=== PATIENT | female | born 1975 | race Caucasian/White ===

== ENCOUNTER → 2019-10-03 10:55 | Outpatient (CLI) | payer OTHER, MEDICARE, SELFPAY ==
--- NOTE | ~2019-10-03 | MM_ITS ---
EXAMINATION: MM screening [facility] BI w tom HISTORY: Screening TECHNIQUE: Craniocaudal and mediolateral oblique 3-D tomosynthesis images were obtained and synthetic 2-D images were generated. CAD analysis was submitted and interpreted. COMPARISON: Comparison to multiple prior studies sequentially, with oldest reviewed study dated 11/15. BREAST PARENCHYMAL COMPOSITION: There are scattered areas of fibroglandular density. FINDINGS: There is no evidence of suspicious mass, calcification, or architectural distortion to sugg est malignancy in either breast. There has been no suspicious interval change. IMPRESSION: 1. No mammographic evidence of malignancy. 2. Recommend routine screening mammography in one year. BI-RADS Category 1: Negative Reviewed, dictated and finalized at location A.
== END ==
PROVIDERS: PCP Family Medicine; Referring Provider Obstetrics & Gynecology Gynecology; Visit Provider Nurse Practitioner Family
DX: Z12.31 Encounter for screening mammogram for malignant neoplasm of breast (principal)
CPT/HCPCS: 77063; 77067

== ENCOUNTER 2020-04-02 13:16 | Emergency (ER) | payer OTHER, MEDICARE, SELFPAY ==
--- NOTE | ~2020-04-02 | CT_ITS ---
EXAMINATION: CT brain wo con INDICATION: Vision changes, dizziness COMPARISON: 05/10/2018 TECHNIQUE: Standard unenhanced head CT. The dose-length product (DLP) was 529.67 mGy-cm. The mA was a djusted according to patient size. Iterative reconstruction technique was employed. FINDINGS: There is no intracranial hemorrhage, acute infarction, or abnormal mass lesion. There is ch ronic encephalomalacia in the parasagittal frontal lobes. The ventricles are normal. There is no abno rmal mass effect or midline shift. The montanez-white matter differentiation is normal. The basal cistern s are patent. The orbits are normal. The paranasal sinuses, mastoids and calvarium are normal. IMPRESSION: 1. Stable encephalomalacia in the parasagittal frontal lobes without acute intracranial abnormality. Reviewed, dictated and finalized at location A. K DRIVER RUBBISH COLLECTOR IMPRESSION: 1. Stable encephalomalacia in the parasagittal frontal lobes without acute intr acranial abnormality.
[2020-04-02 14:08] VITALS: BP 158/106; PULSE 84; RESP 20; TEMP 36.7; O2SAT 100
--- NOTE | 2020-04-02 14:14 | ECG_ITS ---
Measurements Intervals [place] Rate: 82 P: 66 DE: 161 QRS: 54 QRSD: 97 T: 47 QT: 400 QTc: 470 Interpretive Statements SINUS RHYTHM DELAYED PRECORDIAL R/S TRANSITION BASELINE ARTIFACT- II, III, AVF, V1 BORDERLINE ECG Electronically Signed On 04-02-2020 14:55:03 GROCERY CHECKER by Cory Ballesteros D.O.
--- NOTE | 2020-04-02 14:20 | ED.GENADULT ---
HPI - General Adult General Chief complaint: Unspecified Stated complaint: headache not feeling right Source: patient Mode of arrival: ambulatory History of Present Illness HPI narrative: Claribel is a 45F with a PMH of a TBI decades ago and hemorrhagic stroke that presents to the ED with AMS for 4+ days. She reports that she is doing things before she realizes it. For example she got in a cold shower and didn't realize it for some time, went outside in the cold and didn't realize it, started cutting food for no reason and did not know why. She also has had some blurry vision in her right eye with her mild headache. No CP, SOB, syncope, or trauma. Related Data Home Medications Medication Instructions Recorded Confirmed amitriptyline 50 mg PO DAILY 04/02/20 04/02/20 ergocalciferol (vitamin D2) 50,000 unit PO WEEKLY 04/02/20 04/02/20 lamotrigine 200 mg PO BID 04/02/20 04/02/20 lamotrigine [Lamictal XR] 50 mg PO BID 04/02/20 04/02/20 Allergies Allergy/AdvReac Type Severity Reaction Status Date / Time No Known Allergies Allergy Unknown Unverified 04/02/20 14:20 Review of Systems Constitutional: Constitutional: Reports no additional constitutional complaints Eyes: Eyes: Reports no additional eye complaints ENT: Reports system reviewed and no additional complaints, except as documented Cardiovascular: Cardiovascular: Reports no additional cardiovascular complaints Respiratory: Respiratory: Reports no additional respiratory complaints Gastrointestinal: Gastrointestinal: Reports no additional gastrointestinal complaints Genitourinary: Genitourinary: Reports no additional female genitourinary complaints Musculoskeletal: Musculoskeletal: Reports no additional musculoskeletal complaints Integumentary/Breasts: Skin/Breast: Reports system reviewed and no additional complaints, except as docu Psychiatric: Psychiatric: Reports no additional psychiatric complaints [facility] Family History Family History Father Hypertension Grandparent Family history of pancreatic cancer Family history of malignant neoplasm of ovary Other Family history of malignant neoplasm Family history of malignant neoplasm of male breast Social History Social History Smoking status: Never smoker Alcohol intake: never Gender identity (if verbalized by the patient): Female Exam Const: General: cooperative, healthy appearing, comfortable, no acute distress, well developed and alert HENMT: Head: normal to inspection Other: atraumatic Eyes: General: appearance normal, both eyes and all related structures Neck: Neck: normal visual inspection Chest: Chest palpation & inspection: normal inspection of the chest Resp: Effort & Inspection: normal respiratory effort and able to speak in complete sentences Auscultation: clear to auscultation bilaterally Cardio: Rate: regular rate Rhythm: regular rhythm GI: Inspection: normal to inspection Auscultation: normal bowel sounds Back/Spine/Pelvis: Back: no CVA tenderness Skin: General skin exam: normal color and no rashes or lesions noted Neuro: General: oriented to person, oriented to place, oriented to time, moves all extremities, no focal motor deficits and CN's II-XI intact bilaterally Cognition (Neuro): normal cognition Speech: normal speech Motor exam (neuro): 5/5 motor strength present throughout Sensory Exam: normal sensation Other: CNII-XII intact as tested, normal finger to nose, normal rapid alternating movements, able to recall 3 words immediately and at 5 and 30 minutes later. Able to say the months of the year backwards. Able to count down from 100 by serial 7's. Course Course Emergency Course: Claribel was seen and evaluated. Ordered labs and CT head. Labs largely unremarkable. EXAMINATION: CT brain wo con INDICATION: Vision changes, dizziness COMPAR
[2020-04-02 14:30] LABS: Basophils Absolute Auto 0.06 K/mm3 (0.00-0.10); Basophils Percent Auto 0.8 % (0.0-1.0); Eosinophils Absolute Auto 0.31 K/mm3 (0.02-0.50); Eosinophils Percent Auto 4.4 % (1.0-6.0); Hematocrit 40.9 % (35.0-49.0); Hemoglobin 13.6 g/dL (12.0-15.0); Immature Granulocyte Absolute 0.02 K/mm3 (0.00-0.00); Immature Granulocyte Percent A 0.3 % (0.0-0.0); Lymphocytes Absolute Auto 2.09 K/mm3 (1.10-4.50); Lymphocytes Percent Auto 29.4 % (18.0-42.0); Mean Corpuscular HGB Conc 33.3 g/dL (32.0-36.0); Mean Corpuscular Hemoglobin 27.9 pg (27.0-31.0); Mean Corpuscular Volume 83.8 fL (78.0-102.0); Mean Platelet Volume 9.5 fl (9.2-11.8); Monocytes Absolute Auto 0.44 K/mm3 (0.10-0.90); Monocytes Percent Auto 6.2 % (2.0-11.0); Neutrophils Absolute Auto 4.2 K/mm3 (1.7-7.2); Neutrophils Percent Auto 58.9 % (50.0-70.0); Platelet Count Result 288 K/mm3 (150-420); Red Blood Count 4.88 M/mm3 (4.20-5.40); White Blood Count 7.1 K/mm3 (4.8-10.8)
[2020-04-02 14:43] LABS: Prothrombin Time 10.7 Seconds (9.50-12.10)
[2020-04-02 14:48] LABS: Albumin Level 3.9 g/dL (3.4-5.0); Alkaline Phosphatase 127 U/L (46-116); Anion Gap 8 mmol/L (8-16); Aspartate Amino Transferase 18 U/L (15-37); Bilirubin,Total 0.3 mg/dL (0.00-1.00); Blood Urea Nitrogen 14 mg/dL (7-18); Calcium 9.4 mg/dL (8.5-10.1); Carbon Dioxide 28 mmol/L (21-32); Chloride 101 mmol/L (98-108); Estimated CRCL calculation 74 ml/min; Estimated Glomerular Filt Rate 55; Glucose 94 mg/dL (70-99); Osmolality Calculated 284 mOsm/kg (285-295); Potassium 4.2 mmol/L (3.5-5.1); Sodium 137 mmol/L (136-145); Total Protein 7.7 g/dL (6.4-8.2); Troponin I 5.2 ng/L (0.00-60.4)
[2020-04-02 14:56] LABS: Alanine Aminotransferase 34 U/L (14-59)
[2020-04-02 15:50] VITALS: BP 131/89; PULSE 93; RESP 20; TEMP 36.7; O2SAT 98
== END 2020-04-02 15:53 | disposition home or self-care (01) ==
PROVIDERS: Emergency Provider Family Medicine; PCP Family Medicine
DX: R41.82 Altered mental status, unspecified (principal)
CPT/HCPCS: 36415; 70450; 80053; 83880; 84484; 85025; 85610; 93005; 99283; 99284

== ENCOUNTER 2020-05-28 12:50 | Outpatient (CLI) | payer OTHER, MEDICARE, SELFPAY ==
--- NOTE | ~2020-05-28 | XR_ITS ---
EXAMINATION: XR finger 3rd LT min 2V, XR finger 4th LT min 2V EXAM DATE: 05/28/2020 13:20 INDICATION: Left 3rd, 4th finger pain and swelling. TECHNIQUE: Left 3rd finger frontal, lateral and oblique projections obtained and reviewed. Left 4th finger frontal, lateral and oblique projections obtained and reviewed. There is no prior study for comparison. FINDINGS: There are no acute left 3rd, 4th finger fractures or dislocations identified. There is no subcutaneous gas. Swelling over the proximal interphalangeal joints. There are no radiopaque foreig n bodies. IMPRESSION: 1. Left 3rd, 4th finger exam without acute osseous findings. 2. Soft tissue swelling. Reviewed, dictated and finalized at location A. IMPRESSION: 1. Left 3rd, 4th finger exam without acute osseous findings. 2. Soft tissue swelling.
== END 2020-05-28 12:51 | disposition home or self-care (01) ==
LOC: CHSIMG 12:52
PROVIDERS: PCP Family Medicine; Visit Provider Family Medicine
DX: M79.645 Pain in left finger(s) (principal)
CPT/HCPCS: 73140

== ENCOUNTER 2020-07-16 11:35 | Emergency (ER) | payer OTHER, MEDICARE, SELFPAY ==
--- NOTE | ~2020-07-16 | CT_ITS ---
EXAMINATION: CT brain wo con DATE: 07/16/2020 13:19 INDICATION: Altered mental status. TECHNIQUE: Computed tomography (CT) of the head was performed without intravenous contrast. The mA wa s adjusted according to patient size. Iterative reconstruction technique was employed. The dose-lengt h product was 354.92 mGy-cm. COMPARISON: Head CT 04/02/2020 FINDINGS: Again seen is chronic encephalomalacia in the superomedial frontal lobes bilaterally. There is no intracranial hemorrhage, acute infarction, or abnormal intracranial mass lesion. The ventricle s are normal in size. The paranasal sinuses are clear. The mastoid air cells are normal. The orbits a re normal. IMPRESSION: 1. Chronic encephalomalacia in the superomedial frontal lobes bilaterally. Reviewed, dictated and finalized at location B.
[2020-07-16 11:45] VITALS: BP 161/100; PULSE 89; RESP 18; TEMP 36.6; O2SAT 96
--- NOTE | 2020-07-16 11:51 | ED.AMS ---
HPI - Altered Mental Status General Source: family Mode of arrival: ambulatory (Fell in entryway, lifted to stretcher.) Limitations: altered mental status History of Present Illness HPI narrative: 45-year-old woman with a history of traumatic brain injury and seizures brought to the emergency department by her after she was found missing by her family for considerable time this morning. states that she was agitated last night which he states is not an unusual occurrence. He states he did not come to bed last night but he heard her in the house this morning. Here the patient's anxious, tearful. patient states that a woman was goiong to shoot me in the head, She also states, I do not know who I am, when RN asked her name. MD complaint: altered mental status Onset (ago): day(s) (1) Timing confirmed by: spouse Severity: severe Consistency of symptoms: waxing and waning Context: history of similar presentation Related Data Home Medications Medication Instructions Recorded Confirmed amitriptyline 50 mg PO DAILY 04/02/20 07/16/20 ergocalciferol (vitamin D2) 50,000 unit PO WEEKLY 04/02/20 07/16/20 lamotrigine 250 mg PO BID 04/02/20 07/16/20 aspirin 81 mg PO DAILY 07/16/20 07/16/20 calcium carbonate-vitamin D3 1 tablet PO BID 07/16/20 07/16/20 [calcium-vitamin D3] pyridoxine (vitamin B6) 100 mg PO BID 07/16/20 07/16/20 Allergies Allergy/AdvReac Type Severity Reaction Status Date / Time No Known Allergies Allergy Unknown Unverified 07/16/20 12:26 Review of Systems Review of Systems: ROS unobtainable: Yes unobtainable due to mental status PMFSH Past Medical History Medical History (Updated 07/17/20 @ 00:01 by Franck Barksdale) Hypertension SDH (subdural hematoma) Per PCP notes Seizures TBI (traumatic brain injury) 1993 Vitamin D deficiency Surgical History Surgical History (Updated 07/16/20 @ 12:52 by Norm Dodson MD) S/P placement of VNS (vagus nerve stimulation) device Family History Family History Father Hypertension Grandparent Family history of pancreatic cancer Family history of malignant neoplasm of ovary Other Family history of malignant neoplasm Family history of malignant neoplasm of male breast Social History Social History Smoking status: Never smoker Alcohol intake: never Gender identity (if verbalized by the patient): Female Exam Const: Limitations: altered mental status Other: Anxious, tearful. Does not answer to queries, but resists repositioning. Repositions herself to position. HENMT: Head: normal to inspection Eyes: Conjunctivae: conjunctivae normal Pupils: Equal, round and reactive pupils present EOM: EOMs intact bilaterally Resp: Effort & Inspection: normal respiratory effort and not labored Auscultation: clear to auscultation bilaterally, no rales, no rhonchi and no wheezes Cardio: Rate: regular rate Rhythm: regular rhythm Heart sounds: no murmurs GI: GI Palp: Yes Soft to palpation and No Tenderness to palpation present (GI) Skin: General skin exam: normal color, no jaundice and no pallor Rashes: no rashes Neuro: General: moves all extremities and no focal motor deficits Speech: normal speech Extrem: General: normal to inspection and no clubbing, cyanosis or edema Psych: Appearance: grossly normal and well kempt Affect: Anxious affect present Course Vital Signs Vital signs: Vital Signs Temperature 36.6 C 07/16/20 11:45 Pulse Rate 89 07/16/20 11:45 Respiratory Rate 18 07/16/20 11:45 Blood Pressure 161/100 H 07/16/20 11:45 Pulse Oximetry 96 07/16/20 11:45 Temperature 36.7 C 07/16/20 18:00 Pulse Rate 68 07/16/20 18:00 Respiratory Rate 20 07/16/20 18:00 Blood Pressure 148/92 H 07/16/20 18:00 Pulse Oximetry 100 07/16/20 18:00 MDM - Altered Mental Status MDM N
--- NOTE | 2020-07-16 12:07 | ECG_ITS ---
Measurements Intervals [place] Rate: 75 P: 61 IA: 171 QRS: 64 QRSD: 110 T: 55 QT: 410 QTc: 460 Interpretive Statements SINUS RHYTHM DELAYED PRECORDIAL R/S TRANSITION BASELINE ARTIFACT- I, II, AVR BORDERLINE ECG Electronically Signed On 07-16-2020 14:00:25 CDT by Cory Ballesteros D.O.
[2020-07-16 12:12] LABS: Basophils Absolute Auto 0.03 K/mm3 (0.00-0.10); Basophils Percent Auto 0.4 % (0.0-1.0); Eosinophils Absolute Auto 0.28 K/mm3 (0.02-0.50); Eosinophils Percent Auto 4.1 % (1.0-6.0); Hematocrit 40.1 % (35.0-49.0); Hemoglobin 13.1 g/dL (12.0-15.0); Immature Granulocyte Absolute 0.02 K/mm3 (0.00-0.00); Immature Granulocyte Percent A 0.3 % (0.0-0.0); Lymphocytes Absolute Auto 1.74 K/mm3 (1.10-4.50); Lymphocytes Percent Auto 25.6 % (18.0-42.0); Mean Corpuscular HGB Conc 32.7 g/dL (32.0-36.0); Mean Corpuscular Hemoglobin 27.6 pg (27.0-31.0); Mean Corpuscular Volume 84.6 fL (78.0-102.0); Mean Platelet Volume 9.5 fl (9.2-11.8); Monocytes Absolute Auto 0.38 K/mm3 (0.10-0.90); Monocytes Percent Auto 5.6 % (2.0-11.0); Neutrophils Absolute Auto 4.4 K/mm3 (1.7-7.2); Platelet Count Result 268 K/mm3 (150-420); Red Blood Count 4.74 M/mm3 (4.20-5.40); Red Cell Distribution Width 12.7 % (11.6-14.4); White Blood Count 6.8 K/mm3 (4.8-10.8)
[2020-07-16 12:37] LABS: Alanine Aminotransferase 24 U/L (14-59); Albumin Level 3.6 g/dL (3.4-5.0); Alkaline Phosphatase 136 U/L (46-116); Anion Gap 9 mmol/L (8-16); Aspartate Amino Transferase 19 U/L (15-37); Bilirubin,Total 0.3 mg/dL (0.00-1.00); Blood Urea Nitrogen 12 mg/dL (7-18); Calcium 8.7 mg/dL (8.5-10.1); Carbon Dioxide 25 mmol/L (21-32); Chloride 104 mmol/L (98-108); Estimated Glomerular Filt Rate 49; Glucose 102 mg/dL (70-99); Osmolality Calculated 285 mOsm/kg (285-295); Sodium 138 mmol/L (136-145); Total Protein 7.2 g/dL (6.4-8.2)
[2020-07-16 12:39] LABS: Acetaminophen < 2 ug/mL (10-30); Ethanol < 3 mg/dL (0-6); Salicylate 0.6 mg/dL (2.8-20.0); Thyroid Stimulating Hormone 0.77 uIU/mL (0.36-3.74)
[2020-07-16] MEDS: LORazepam INJ (*CRX) 2 MG/ML VIAL 0.5 MG IV PUSH (13:40)
--- NOTE | 2020-07-16 13:42 | PC.NURSE ---
ERP CONTACTED PTS NEUROLOGIST. DR. RAYMOND, AWAITING CALL BACK
[2020-07-16 15:14] LABS: Add Urine Microscopic? YES; Appearance Urine Clear (Clear); Bilirubin Urine Negative (Negative); Blood Urine 1+ (Negative); Color Urine Yellow (Yellow); Glucose Urine UA Negative (Negative); Ketones Urine Negative (Negative); Leukocyte Esterase Ur Trace LEU/UL (Negative); Nitrate Urine Negative (Negative); Protein Urine Negative (Negative); Urobilinogen Urine 0.2 mg/dL (0.2-1.0); pH Urine 7.5 (5.0-8.0)
[2020-07-16 15:20] LABS: Amphetamine Screen Urine Negative (Negative); Barbiturate Screen Urine Negative (Negative); Benzodiazepines Screen Urine Negative (Negative); Cannabinoid Screen Urine Positive (Negative); Cocaine Screen Urine Negative (Negative); Methadone Screen Urine Negative (Negative); Opiate Screen Urine Negative (Negative); Phencyclidine Screen Urine Negative (Negative)
[2020-07-16 15:24] LABS: Bacteria Urine 3+ /hpf; RBC Urine 0-2 /hpf (0-2); Squamous Epithelial Cell Urine Moderate /hpf (Few); WBC Urine 0-3 /hpf (0-3)
[2020-07-16] MEDS: DEXTROSE 5%/LACTATED RINGERS 1,000 ML 150 ML IV CONT (15:29)
--- NOTE | 2020-07-16 16:16 | PC.NURSE ---
pt is now alert and oriented x2. pt states her name and recent events but did not know where she was at first. pt states she wants to leave the hospital because they never find out whats wrong with me, they just run up my hospital bills
--- NOTE | 2020-07-16 17:27 | PC.NURSE ---
report provided to fuentes enamorado
[2020-07-16 18:00] VITALS: BP 148/92; PULSE 68; RESP 20; TEMP 36.7; O2SAT 100
[2020-07-19 07:57] LABS: Lamotrigine Lamictal 11.9 mcg/mL (4.0-18.0)
--- NOTE | 2020-07-25 12:34 | PC.NURSE ---
IVF STARTED AT 1520 AT 150 ML/HR. PT PULLED OUT IV ACCESS AT 1700. APPROX 200 ML INFUSED. PT REFUSED NEW IV ACCESS. IVF STOP TIME 1700
== END 2020-07-16 18:05 | disposition home or self-care (01) ==
PROVIDERS: Emergency Provider Emergency Medicine; PCP Family Medicine
DX: R41.82 Altered mental status, unspecified (principal); Z79.899 Other long term (current) drug therapy
CPT/HCPCS: 36415; 70450; 80053; 80175; 80307; 81001; 84443; 85025; 93005; 96361; 96374; 99284; J2060; J7121

== ENCOUNTER → 2020-10-08 10:04 | Outpatient (CLI) | payer OTHER, MEDICARE, SELFPAY ==
--- NOTE | ~2020-10-08 | MM_ITS ---
EXAMINATION: MM screening [facility] BI w tom HISTORY: Screening mammogram TECHNIQUE: Craniocaudal and mediolateral oblique 3-D tomosynthesis images were obtained and synthetic 2-D images were generated. CAD analysis was submitted and interpreted. COMPARISON: 10/03/2019, 07/19/2018, 07/15/2017 BREAST PARENCHYMAL COMPOSITION: The breasts are heterogeneously dense, which may obscure small masses . FINDINGS: There is no evidence of suspicious mass, calcification, or architectural distortion to sugg est malignancy in either breast. There has been no suspicious interval change. IMPRESSION: 1. No mammographic evidence of malignancy. 2. Recommend routine screening mammography in one year. BI-RADS Category 1: Negative Reviewed, dictated and finalized at location A.
== END ==
PROVIDERS: Visit Provider Nurse Practitioner
DX: Z12.31 Encounter for screening mammogram for malignant neoplasm of breast (principal)
CPT/HCPCS: 77063; 77067

== ENCOUNTER 2021-05-27 00:15 | Day surgery (SDC) | payer OTHER, MEDICARE, SELFPAY ==
[2021-03-02 11:14] VITALS: BMI 40.1
[2021-05-19 11:51] VITALS: BMI 40.1
--- NOTE | 2021-05-20 11:29 | PC.NURSE ---
05/20/[address] SOLOMON REGARDING VNS AND POSSIBLE USE OF CAUTERY DURING COLONOSCOPY, NO PRECAUTIONS NECESSARY IN REGARDS TO VNS- CONCERN IS WHEN USING MAGNETIC FIELD-MRI.
--- NOTE | 2021-05-26 14:17 | PM.HPGS ---
History of Present Illness History of Present Illness Consent: Risks, benefits, and alternatives have been discussed and questions answered. Patient agrees to proceed with procedure. Chief complaint: neoplasm screening Narrative: Claribel Ayala is a 46 year old female was referred for colon cancer screening. She has not had any significant bowel problems. Review of Systems Review of Systems: All systems reviewed & are unremarkable except as noted in HPI and below PMFSH Past Medical History Medical History Hypertension SDH (subdural hematoma) Per PCP notes Seizures TBI (traumatic brain injury) 1994 Vitamin D deficiency Surgical History Surgical History S/P placement of VNS (vagus nerve stimulation) device Family History Family History Father Hypertension Grandparent Family history of pancreatic cancer Family history of malignant neoplasm of ovary Other Family history of malignant neoplasm Family history of malignant neoplasm of male breast Social History Social History Smoking status: Never smoker Alcohol intake: never Substance use: current Substance use type: marijuana Other substance usage details: GUMMIES- ONCE A DAY Living arrangements: with family Gender identity (if verbalized by the patient): Female Spiritual care concerns: No Meds Home Medications and Allergies Home Medications Medication Instructions Recorded Confirmed Type amitriptyline 50 mg PO HS 04/02/20 05/27/21 History ergocalciferol (vitamin D2) 50,000 unit PO WEEKLY 04/02/20 05/27/21 History lamotrigine 200 mg PO BID 04/02/20 05/27/21 History aspirin 81 mg PO HS 07/16/20 05/27/21 History calcium carbonate-vitamin D3 1 tablet PO BID 07/16/20 05/27/21 History [calcium-vitamin D3] folic acid 0.8 mg PO BID 03/02/21 05/27/21 History lamotrigine 50 mg PO BID 03/02/21 05/27/21 History Allergies Allergy/AdvReac Type Severity Reaction Status Date / Time No Known Allergies Allergy Unknown Verified 05/27/21 06:26 Exam Const: General: alert Orientation/consciousness: patient oriented x3 Resp: Auscultation: clear to auscultation bilaterally Cardio: Rhythm: regular rhythm GI: GI Palp: Yes Soft to palpation and No Tenderness to palpation present (GI) Neuro: General: patient oriented x3 Assessment and Plan Assessment and plan (1) Colon cancer screening: Code(s): Z12.11 - Encounter for screening for malignant neoplasm of colon Status: Acute Assessment and Plan: Colonoscopy with possible biopsy or polypectomy or cautery or injection of substances.
[2021-05-27 06:20] VITALS: BP 128/93; PULSE 84; RESP 18; TEMP 35.9; O2SAT 100; BMI 39.5
[2021-05-27] MEDS: LACTATED RINGERS 1,000 ML 150 ML IV CONT (06:54)
--- NOTE | 2021-05-27 06:58 | WPDANESEPPF ---
Anes - Initial Pre Proc Eval Procedure: Operation Date: 05/27/21 07:30 Proposed Procedures p Screening Colonoscopy - Darshan Gifford MD Date/Time: 05/27/21 06:58 Surgeon: Darshan Gifford MD Pre Op Diagnosis: neoplasm screening Patient Data Age: 46 Gender: F Height: 1.68 m Weight: 111.2 kg Last Vital Signs Temp 35.9 C L 05/27/21 06:20 Pulse 84 05/27/21 06:20 Resp 18 05/27/21 06:20 BP 128/93 H 05/27/21 06:20 Pulse Ox 100 05/27/21 06:20 Allergies Allergy/AdvReac Type Severity Reaction Status Date / Time No Known Allergies Allergy Unknown Verified 05/27/21 06:26 Home Medications Medication Instructions Recorded Confirmed Type amitriptyline 50 mg PO HS 04/02/20 05/27/21 History ergocalciferol (vitamin D2) 50,000 unit PO WEEKLY 04/02/20 05/27/21 History lamotrigine 200 mg PO BID 04/02/20 05/27/21 History aspirin 81 mg PO HS 07/16/20 05/27/21 History calcium carbonate-vitamin D3 1 tablet PO BID 07/16/20 05/27/21 History [calcium-vitamin D3] folic acid 0.8 mg PO BID 03/02/21 05/27/21 History lamotrigine 50 mg PO BID 03/02/21 05/27/21 History Patient hx anesthesia problems: none Family hx anesthesia problems: none Results Review: All pre-operative results and documents have been reviewed as part of the pre-operative evaluation. [facility] Past Medical History Medical History Hypertension SDH (subdural hematoma) Per PCP notes Seizures TBI (traumatic brain injury) 1993 Vitamin D deficiency Surgical History Surgical History S/P placement of VNS (vagus nerve stimulation) device Family History Family History Father Hypertension Grandparent Family history of pancreatic cancer Family history of malignant neoplasm of ovary Other Family history of malignant neoplasm Family history of malignant neoplasm of male breast Social History Social History Smoking status: Never smoker Alcohol intake: never Substance use: current Substance use type: marijuana Other substance usage details: GUMMIES- ONCE A DAY Living arrangements: with family Gender identity (if verbalized by the patient): Female Spiritual care concerns: No Anes - Eval Final PreProcedure Day of Procedure 05/27/21 06:58 Patient weight: obese Heart: regular rate and rhythm Lungs: clear to auscultation Airway: Mallampati scale class II Neurological: alert and oriented Last oral intake: >/= 8 hours ASA classification: III Emergent: no Anesthetic plan: proceed Anesthesia type and monitoring: general GIVS and standard monitoring Results Review: All pre-operative results and documents have been reviewed as part of the pre-operative evaluation. Informed Consent: The patient's anesthetic plan and its attendant risks and benefits were discussed with the patient/family/POA. Questions were solicited and answers provided to the satisfaction of the patient/family/POA.
[2021-05-27 07:46] VITALS: BP 102/71; PULSE 74; RESP 14; O2SAT 96
[2021-05-27 07:56] VITALS: BP 113/77; PULSE 69; RESP 15; O2SAT 97
[2021-05-27 08:06] VITALS: BP 127/87; PULSE 71; RESP 17; O2SAT 97
== END 2021-05-27 08:17 | disposition home or self-care (01) ==
PROVIDERS: PCP Family Medicine; Visit Provider Internal Medicine Gastroenterology
PROC: 0DJD8ZZ Inspection of Lower Intestinal Tract, Via Natural or Artificial Opening Endoscopic (ICD-10-PCS; CPT 45378; principal; 2021-05-27 07:30)
DX: Z12.11 Encounter for screening for malignant neoplasm of colon (principal); I10 Essential (primary) hypertension; E55.9 Vitamin D deficiency, unspecified; R56.9 Unspecified convulsions; Z87.820 Personal history of traumatic brain injury
CPT/HCPCS: 45378; J2704; J7120

== ENCOUNTER → 2021-10-14 11:03 | Outpatient (CLI) | payer OTHER, MEDICARE, SELFPAY ==
--- NOTE | ~2021-10-14 | MM_ITS ---
EXAMINATION: MM screening [facility] BI w tom HISTORY: Screening TECHNIQUE: Craniocaudal and mediolateral oblique 3-D tomosynthesis images were obtained and synthetic 2-D images were generated. CAD analysis was submitted and interpreted. COMPARISON: Comparison to multiple prior studies sequentially, with oldest reviewed study dated 06/15. BREAST PARENCHYMAL COMPOSITION: Breast composed of scattered areas of fibroglandular density FINDINGS: There is no evidence of suspicious mass, calcification, or architectural distortion to sugg est malignancy in either breast. There has been no suspicious interval change. IMPRESSION: 1. No mammographic evidence of malignancy. 2. Recommend routine screening mammography in one year. BI-RADS Category 1: Negative Reviewed, dictated and finalized at location A.
== END ==
PROVIDERS: PCP Family Medicine; Visit Provider Obstetrics & Gynecology Gynecology
DX: Z12.31 Encounter for screening mammogram for malignant neoplasm of breast (principal)
CPT/HCPCS: 77063; 77067

== ENCOUNTER 2022-06-12 08:57 | Outpatient (CLI) | payer OTHER, MEDICARE, SELFPAY ==
--- NOTE | ~2022-06-12 | XR_ITS ---
EXAM: XR foot LT min 3V DATE: 06/12/2022 09:25 HISTORY: INJURY 1 WEEK AGO, PAIN ACROSS MT'S, CAN'T WB . COMPARISON: 06/21/2012. FINDINGS: Normal mineralization. Nondisplaced fracture of the anterior calcaneal process. No lytic o r blastic lesion. Degenerative change at the midfoot. Plantar enthesopathy. No erosion or periosteal change. Soft tissues within normal limits. IMPRESSION: Nondisplaced anterior calcaneal process fracture. Reviewed, dictated and finalized at location K.
== END 2022-06-12 08:58 | disposition home or self-care (01) ==
LOC: CHSIMG 09:00
PROVIDERS: PCP Family Medicine; Visit Provider Family Medicine
DX: M79.672 Pain in left foot (principal); S92.025A Nondisplaced fracture of anterior process of left calcaneus, initial encounter for closed fracture
CPT/HCPCS: 73630

== ENCOUNTER → 2023-02-01 11:41 | Outpatient (CLI) | payer OTHER, MEDICARE, SELFPAY ==
--- NOTE | ~2023-02-01 | MM_ITS ---
EXAMINATION: MM screening [facility] BI w tom HISTORY: Screening TECHNIQUE: Craniocaudal and mediolateral oblique 3-D tomosynthesis images were obtained and synthetic 2-D images were generated. CAD analysis was submitted and interpreted. COMPARISON: Comparison to multiple prior studies sequentially, with oldest reviewed study dated 06/18. BREAST PARENCHYMAL COMPOSITION: Breast composed of scattered areas of fibroglandular density FINDINGS: There is no evidence of suspicious mass, calcification, or architectural distortion to sugg est malignancy in either breast. There has been no suspicious interval change. IMPRESSION: 1. No mammographic evidence of malignancy. 2. Recommend routine screening mammography in one year. BI-RADS Category 1: Negative Reviewed, dictated and finalized at location A. RONMENTAL STUDIES DEPARTMENT CHAIR
== END ==
PROVIDERS: PCP Nurse Practitioner; Visit Provider Nurse Practitioner
DX: Z12.31 Encounter for screening mammogram for malignant neoplasm of breast (principal)
CPT/HCPCS: 77063; 77067

== ENCOUNTER 2024-02-23 12:11 | Outpatient (CLI) | payer OTHER, MEDICARE, SELFPAY ==
--- NOTE | ~2024-02-23 | MM_ITS ---
EXAMINATION: MM screening [facility] BI w tom HISTORY: Screening mammogram TECHNIQUE: Craniocaudal and mediolateral oblique 3-D tomosynthesis images were obtained and synthetic 2-D images were generated. CAD analysis was submitted and interpreted. COMPARISON: 02/01/2023, 10/14/2021, 10/08/2020 BREAST PARENCHYMAL COMPOSITION:Not Dense. There are scattered areas of fibroglandular density. FINDINGS: No suspicious mass, calcification, or architectural distortion are identified in either didier ast to suggest malignancy. There has been no suspicious interval change. IMPRESSION: No mammographic evidence of malignancy. Recommend routine screening mammography in one year. BI-RADS Category 1: Negative Reviewed, dictated and finalized at location . ERN ROOM WORKING SUPERVISOR
== END 2024-02-23 12:12 | disposition home or self-care (01) ==
LOC: MICIMG 12:13
PROVIDERS: PCP Nurse Practitioner; Visit Provider Nurse Practitioner
DX: Z12.31 Encounter for screening mammogram for malignant neoplasm of breast (principal)
CPT/HCPCS: 77063; 77067

== ENCOUNTER 2024-05-09 09:43 | Outpatient (CLI) | payer OTHER, MEDICARE, SELFPAY ==
--- NOTE | ~2024-05-09 | XR_ITS ---
AP and lateral views of the left hip Clinical history: Pain Findings: No acute fracture or dislocation is seen. Osseous alignment is anatomic. Left hip joint is intact. Soft tissues are unremarkable. Impression: No significant abnormality is seen. Reviewed, dictated and finalized at location M. Impression: No significant abnormality is seen.
--- OUTSIDE RECORDS SUMMARY | 2024-05-09 10:57 | XMS_ITS | Clinical Summary ---
Author Organization [facility] Address [address] [place] [address] Care Team Providers Care Organ Recovery Coordinator Name Role Phone Topher Reyna MD Primary Care Provider [phone] Allergies No known active allergies Medications amitriptyline 50 MG tablet Take 50 mg by mouth daily. At bedtime 02/27/2019 Active BRIVIACT 50 MG tablet Take 50 mg by mouth 2 (two) times daily. 02/19/2019 Active vitamin D2, ergocalciferol, 67316 UNITS capsule Take 50,000 Units by mouth once a week. Every tuesday01/19/2019 Active lamoTRIgine 200 MG tablet Take 200 mg by mouth 2 (two) times daily. 10/04/2018 Active ibuprofen 800 MG tablet Take 800 mg by mouth every 6 (six) hours as needed. FOR SEVERE PAIN 11/22/2018 Active aspirin 81 MG chewable tablet Chew 81 mg by mouth daily. Active calcium carbonate-vitam in D 600-400 MG-UNIT Tab Take 1 tablet by mouth 2 (two) times daily. Active folic acid 1 MG tablet Take 0.8 mg by mouth 2 (two) times a day. Active Acetaminophen 500 MG Chew Tab Chew 500 mg by mouth every 6 (six) hours as needed (Pain-Mild/F ever). Active Social History Tobacco Use Types Packs/Day Years Used Date Smoking Tobacco: Never Smokeless Tobacco: Never Alcohol Use Standard Drinks/Week Comments No 0 (1 standard drink = 0.6 oz pur e alcohol) AUDIT-C Answer Date Recorded Frequency of Alcohol Consumption Never 03/01/2019 Average Number of Drinks Not on file 020 Frequency of Binge Drinking Not on file 10/2019 Comments Unknown Sex and Gender Information Value Date Recorded Sex Assigned at Not on file Legal Sex Female 6:59 PM CDT Gender Identity Not on file Sexual Orientation Not on file Last Filed Vital Signs Vital Sign Reading Time Taken Comments Blood Pressure 134/82 03/01/2019 5:00 PM WAREHOUSE EXAMINER Pulse 79 03/01/2019 1:24 PM WAREHOUSE EXAMINER Temperature 37.3 C (99.2 F) 03/01/2019 1:24 PM WAREHOUSE EXAMINER Respiratory Rate 18 03/01/2019 1:24 PM WAREHOUSE EXAMINER Oxygen Saturation 99% 03/01/2019 5:00 PM WAREHOUSE EXAMINER Inhaled Oxygen Concentration - - Weight 110.6 kg (243 lb 12.8 oz) 03/01/2019 1:24 PM WAREHOUSE EXAMINER Height 167.6 cm (5' 6 ) 03/01/2019 1:24 PM WAREHOUSE EXAMINER Body Mass Index 39.35 03/01/2019 1:24 PM WAREHOUSE EXAMINER Plan of Treatment Health Maintenance Due Date Last Done Comments Cervical Cancer Screening Pa p Smear (Age 30 to 64) Every 3 Years 1975 Colorectal Cancer Screening Colonoscopy (10 Years) 1975 Annual Physical 1978 Hepatitis C 1993 DTaP, Tdap and Td Vaccines ( 1 - Tdap) 1994 Hepatitis B Vaccines (1 of 3 - 19+ 3-dose series) 1994 Cervical Cancer Screening Pa p with HPV Testing (Age 30 to 64) Every 5 Years 2005 Cervical Cancer Screening with HPV 2005 Mammogram Screening 2015 COVID-19 Vaccine (2023-2 5 season) 2023 Influenza Adult (#1) 2023 Meningococcal B Vaccine Aged Out No l onger eligible based on patient's age to complete this topic Meningococcal Vaccine Aged Out No pacheco melba eligible based on patient's age to complete this topic Pneumococcal Vaccine: Pediat rics (0 to 5 Years) and At-Risk Patients (6 to 64 Years) Aged Out No longer eligible b ased on patient's age to complete this topic RSV Immunizations Under 20 Months Aged Out No longer eligible based on patient's age to complete this topic Insurance AETNA MEDICARE Care Teams Organ Recovery Coordinator Relationship Specialty Start Date End Date Topher Reyna MD PCP - General FAMILY PRACTICE 03/01/19
--- OUTSIDE RECORDS SUMMARY | 2024-05-09 10:57 | XMS_ITS | Encounter Summary ---
Author Organization [facility] Address [facility] [place] [address] Care Team Providers Care Senior Commissary Agent Name Role Phone Esther Almaraz MD Primary Care Provider Unavailable Topher Reyna MD Primary Care Provider [phone] Encounter Details Date Type Department Care Team (Late st Contact Info) Description 12/25/2016 [place] [address] Esther Almaraz MD Social History Tobacco Use Types Packs/Day Years Used Date Smoking Tobacco: Never Assessed Comments Unknown Sex and Gender Information Value Date Recorded Sex Assigned at Not on file Legal Sex Female 6:59 PM CDT Gender Identity Not on file Sexual Orientation Not on file documented as of this encounter Plan of Treatment Not on file documented as of this encounter Visit Diagnoses Not on filedocumented in this encounter Care Teams Senior Commissary Agent Relationship Specialty Start Date End Date Esther Almaraz MD PCP - General 01/16/13 Topher Reyna MD PCP - General FAMILY PRACTICE 03/01/19 documented as of this encounter
--- OUTSIDE RECORDS SUMMARY | 2024-05-09 10:57 | XMS_ITS | Clinical Summary ---
Author Organization [facility] Address [address] [place] [address] Care Team Providers Care Fourdrinier Tender Name Role Phone Topher Reyna MD Primary Care Provider [phone] Topher Reyna MD Unavailable [phone] Source Comments [facility],non-[place] Affiliates and Associated Physician Practices is amultiple site organization consisting of ambulatory clinics and hospital sitesin [place], [place], [place] and [place]. This disclosure is being madepursuant to the Care Everywhere program and may not contain all information available regarding this patient. Last updated 17.[facility] Social History Tobacco Use Types Packs/Day Years Used Date Smoking Tobacco: Never Assessed PHQ-2 Answer Date Recorded PHQ2 TOTAL SCORE 0 12/16/2021 Sex and Gender Information Value Date Recorded Sex Assigned at Not on file Gender Identity Not on file Sexual Orientation Not on file Plan of Treatment Health Maintenance Due Date Last Done Comments COLOGUARD (AGES 45-75) - COL ON CA SCREENING 1975 COLON MONITORING 1975 COLONOSCOPY - COLON CA SCREENING 1975 CT COLONOGRAPHY - COLON CA SCREENING 1975 Colorectal Cancer Screening 1975 FIT - COLON CA SCREENING 1975 FLEX SIG - COLON CA SCREENING 1975 LIPID TESTING 1975 MAMMOGRAM 1975 MEDICARE AWV 12 MONTHS 1975 HIV SCREENING 1990 HEPATITIS C SCREENING 02/10/1993 DTAP/TDAP/TD VACCINES (1 - Tdap) 1994 HEPATITIS B VACCINE (1 of 3 - 19+ 3-dose series) 1994 PAP SMEAR 12/31/2019 12/30/2016 COVID-19 VACCINE (1 - 2023-2 5 season) 2023 INFLUENZA VACCINE (#1) 2023 DEPRESSION SCREENING 02/22/2024 11/24/2021 ZOSTER VACCINE (1 of 2) 2025 HIB VACCINE Aged Out No longer eligi ble based on patient's age to complete this topic HPV VACCINE Aged Out No longer eligi ble based on patient's age to complete this topic MENINGOCOCCAL (Group B) VACC INE SHARED DECISION-MAKING Aged Out No longer eligibl e based on patient's age to complete this topic MENINGOCOCCAL GROUPS A/C/Y/W VACCINE Aged Out No longer eligible b ased on patient's age to complete this topic PNEUMOCOCCAL VACCINE Aged Out No long er eligible based on patient's age to complete this topic Insurance Payer Benefit Plan / Group Subscriber ID Effective Dates Phone Address Type AETNA AETNA PPO/POS/OA [id number] 02/21/2021-[place] [address] [place] [address] PPO AETNA AETNA PPO/POS/OA 06/22/2011-[place] t [address] [place] [address] PPO MEDICARE WPS MEDICARE PART B [id number] 02/22/2012-[place] [address] [address] [place] [address] Medicare AETNA AETNA PPO/POS/OA 06/22/2011-Presen t [id number] [address] [place] [address] PPO MEDICARE WPS MEDICARE PART B [id number] 02/22/2012-[place] [address] [address] [place] [address] Medicare AETNA AETNA PPO/POS/OA 06/22/2011-Presen t [id number] [address] [place] [address] PPO MEDICARE WPS MEDICARE PART B [id number] 02/22/2012-[place] [address] [address] [place] [address] Medicare AETNA AETNA PPO/POS/OA 06/22/2011-Presen t [address] [place] [address] PPO MEDICARE WPS MEDICARE PART B [id number] 02/22/2012-[place] [address] [address] [place] [address] Medicare AETNA AETNA PPO/POS/OA 06/22/2011-Presen t [address] [place] [address] PPO MEDICARE WPS MEDICARE PART B [id number] 02/22/2012-[place] [address] [address] [place] [address] Medicare AETNA AETNA PPO/POS/OA 06/22/2011-Presen t [address] [place] [address] PPO MEDICARE WPS MEDICARE PART B [id number] 02/22/2012-[place] [address] [address] [place] [address] Medicare AETNA AETNA PPO/POS/OA 06/22/2011-Presen t [address] [place] [address] PPO MEDICARE WPS MEDICARE PART B [id number] 02/22/2012-[place] [address] [address] [place] [address] Medicare AETNA AETNA PPO/POS/OA 06/22/2011-Presen t [address] [place] [address] PPO MEDICARE WPS MEDICARE PART B [id number] 02/22/2012-[place] [address] [address] [place] [address] Medicare AETNA AETNA PPO/POS/OA 06/22/2011-Presen t [address] [place] [address] PPO MEDICARE WPS MEDICARE PART B [id number] 02/22/2012-[place] [address] [address] [place] [address] Medicare AETNA AETNA PPO/POS/OA 06/22/2011-Presen t [address] [place] [address] PPO MEDICARE WPS MEDICARE PART B [id number] 02/22/2012-[place] [address] [address] [place] [address] Medicare AETNA AETNA PPO/POS/OA 06/22/2011-Presen t [address] [place] [address] PPO MEDICARE WPS MEDICARE PART B [id number] 02/22/2012-[place] [address] [address] [place] [address] Medicare AETNA AETNA PPO/POS/OA 06/22/2011-Presen t [address] [place] [address] PPO MEDICARE WPS MEDICARE PART B [id number] 02/22/2012-[place]en [place] [address] [address] [place] [address] Medicare AETNA AETNA PPO/POS/OA 06/22/2011-Presen t [address] [place] [address] PPO MEDICARE WPS MEDICARE PART B [id number] 02/22/2012-[place] [address] [address] [place] [address] Medicare AETNA AETNA PPO/POS/OA 06/22/2011-Presen t [address] [place] [address] PPO MEDICARE WPS MEDICARE PART B [id number] 02/22/2012-[place] [address] [address] [place] [address] Medicare AETNA AETNA PPO/POS/OA 06/22/2011-Presen t [address] [place] [address] PPO MEDICARE WPS MEDICARE PART B [id number] 02/22/2012-[place] [address] [address] [place] [address] Medicare AETNA AETNA PPO/POS/OA [id number] 06/22/2011-Shlomo hines [phone] [address] [place] [address] PPO MEDICARE MEDICARE PART A AND B [id number] 02/22/2012-Shlomo hines [address] [place] [address] Medicare Care Teams Fourdrinier Tender Relationship Specialty Start Date End Date Topher Reyna MD [address] [place] [address] PCP - General 09/18/21 Topher Reyna MD [address] [place] [address] 09/18/21
== END 2024-05-09 09:44 | disposition home or self-care (01) ==
PROVIDERS: PCP Family Medicine; Visit Provider Family Medicine
DX: M25.552 Pain in left hip (principal)
CPT/HCPCS: 73502

== ENCOUNTER 2024-05-10 14:32 | Outpatient (RCR) | payer OTHER, MEDICARE, SELFPAY ==
--- NOTE | 2024-05-10 15:19 | OPREHPOC ---
Outpatient Therapy Plan of Care This is a Multidisciplinary Plan of Care that may contain components documented by all disciplines (PT, OT, and ST.) PT Problem 1 PT Problem #1 Knowledge Deficit PT Goal 1 Goal / Goal Update 1. independent and compliant with HEP Target Visit 6 PT Problem 2 PT Problem #2 Pain PT Goal 1 Goal / Goal Update 1. 2/10 pain or less in the L hip at worst Target Visit 12 PT Problem 3 PT Problem #3 Impaired Strength PT Goal 1 Goal / Goal Update 1. 5/5 bilateral hip strength Target Visit 12 PT Problem 4 PT Problem #4 Impaired Functional Mobility PT Goal 1 Goal / Goal Update 1. LEFS to display 30% or less functional deficits 2. patient to return to normal ambulation leatha and complete 1200ft ambulation in 6 minute walk test 3. no falls since beginning skilled PT Target Visit 12
--- NOTE | 2024-05-10 15:19 | PTOPEVAL1 ---
Assessment and note entered by JT File, PT Evaluation Information Assessment Status Evaluation ICD-10 Condition Codes (PT) Pain in left hip M25.552 Onset 05/09/24 Subjective Information patient reports the L hip has been hurting since november. however, she had a seizure in february of this year and fell on the L shoulder. she reports she has seizures about once a month. she reports she has pain in the L hip with moving the hip, pushing on the hip, and walking. she reports the L LE gives out on her frequently. she reports there was no injury back in november. she reports she had an xray yesterday. she reports the pain has really slowed down her walking. prior to november, no issues with the L hip. Reported Pain Level Pain Score 8: Self Report Assessment PT Clinical Summary mrs. johnson is a pleasant 49 yo woman who presents to skilled PT for evaluation and treatment of L hip pain. she displays C-type pain around the L hip after a fall from a seizure at home. she displays bilateral hip weakness today, pain with palpation of the anterior L hip along the inguinal line, and positive special test of the L hip today. continued skilled PT is indicated to improve her objective/functional deficits and return to her prior level functional activity performance/quality of life. Plan of Care Interventions Gait Training,Hot Pack/Cold Pack,Manual Therapy, Neuro Re-education,Patient/Caregiver Education, Therapeutic Activities,Therapeutic Exercise PT Services Indicated Yes Treatment Frequency and 3x weekly for 12 visits Duration These treatments will address the objective and functional deficits as defined above. The patient will be advanced safely and appropriately in order for the patient to progress towards his/her prior level of function. Additional exercises will be introduced and as well as a comprehensive home exercise program upon discharge, if needed, ?to ensure carryover of functional gains achieved in the clinic. This treatment plan has been reviewed and agreement upon by the patient.
--- NOTE | 2024-05-16 09:47 | OPREHPOC ---
Outpatient Therapy Plan of Care This is a Multidisciplinary Plan of Care that may contain components documented by all disciplines (PT, OT, and ST.) PT Problem 1 PT Problem #1 Knowledge Deficit PT Goal 1 Goal / Goal Update 1. independent and compliant with HEP Target Visit 6 Progress Met PT Problem 2 PT Problem #2 Pain PT Goal 1 Goal / Goal Update 1. 2/10 pain or less in the L hip at worst Target Visit 12 Progress Not Met PT Problem 3 PT Problem #3 Impaired Strength PT Goal 1 Goal / Goal Update 1. 5/5 bilateral hip strength Target Visit 12 Progress Not Met PT Problem 4 PT Problem #4 Impaired Functional Mobility PT Goal 1 Goal / Goal Update 1. LEFS to display 30% or less functional deficits -not met 2. patient to return to normal ambulation leatha and complete 1200ft ambulation in 6 minute walk test -met 3. no falls since beginning skilled PT -met Target Visit 12 Progress Partially Met
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
== END 2024-05-16 10:36 | disposition home or self-care (01) ==
LOC: CHSPT 14:32
PROVIDERS: PCP Family Medicine; Visit Provider Family Medicine
DX: M25.552 Pain in left hip (principal)
CPT/HCPCS: 97110; 97161; 97530; 97750